=== PATIENT | male | born 1945 | race Caucasian/White ===

== ENCOUNTER 2017-06-10 00:37 | Emergency (ER) | payer OTHER, BC ==
[2017-06-10] MEDS ORDERED: IPRATROPIUM/ALBUTEROL 3 ML DEYVIAL ONE (00:43)
[2017-06-10] MEDS ORDERED: IPRATROPIUM/ALBUTEROL 3 ML DEYVIAL IH ONE (00:45)
[2017-06-10] MEDS ORDERED: NS 500 ML IV ONE (00:48)
[2017-06-10] MEDS ORDERED: methylPREDNISolone SOD SUCC 125 MG/2 ML VIAL IVP ONE (00:48)
[2017-06-10] MEDS ORDERED: MAGNESIUM SULF 2 GM/WATER 50 ML IV ONE (00:48)
[2017-06-10] MEDS ORDERED: ALBUTEROL 3 ML DEYVIAL IH ONE (00:49)
--- NOTE | 2017-06-10 00:51 | EDPHY ---
H & P Stated Complaint: asthma attack Time Seen by Provider: 06/10/17 00:43 HPI/ROS: HPI The patient presents with acute onset of shortness of breath about 30 minutes prior to presentation to the emergency department. As he was sleeping and he awoke and felt short of breath with wheezing. This was persistent, associated with coughing, not improved with his albuterol inhaler that he has at home. He was not able to settle down, so his brought him in. He denies any chest pain. He does report recent URI type symptoms over the last several days. He has not had a fever. He does not have any leg swelling. He says this is his worst attack in the last 30 years.. REVIEW OF SYSTEMS Constitutional: No fever, no chills. Eyes: No discharge. ENT: No sore throat. Cardiovascular: No chest pain, no palpitations. Respiratory: See HPI Gastrointestinal: No abdominal pain, no vomiting. Genitourinary: No hematuria. Musculoskeletal: No back pain. Skin: No rashes. Neurological: No headache. PMHx: History of asthma, uses albuterol occasionally Soc Hx: Former cigarette smoker PHYSICAL General Appearance: Alert, in acute respiratory distress with audible wheeze Eyes: Pupils equal and round no pallor or injection ENT, Mouth: Mucous membranes moist Respiratory: Tachypneic, retractions present, diminished breath sounds throughout with mild expiratory wheezes Cardiovascular: Regular rate and rhythm Gastrointestinal: Abdomen is soft and non-tender, no masses, bowel sounds normal Neurological: A&O, moves all extremities Skin: Warm and dry, no rashes Musculoskeletal: Neck is supple non tender Extremities: symmetrical, full range of motion Psychiatric: Patient is oriented X 3, there is no agitation Source: Patient, Family - Personal History Current Tetanus/Diphtheria Vaccine: Unsure - Medical/Surgical History Hx Asthma: Yes Hx Chronic Respiratory Disease: No Hx Diabetes: No Hx Cardiac Disease: No Hx Renal Disease: No Hx Cirrhosis: No Hx Alcoholism: No Hx HIV/AIDS: No Hx Splenectomy or Spleen Trauma: No Other PMH: asthma, - Social History Smoking Status: Former smoker Constitutional: Initial Vital Signs Temperature (C) 36.0 C 06/10/17 00:40 Heart Rate 115 H 06/10/17 00:40 Respiratory Rate 30 H 06/10/17 00:40 Blood Pressure 202/112 H 06/10/17 00:40 O2 Sat (%) 77 L 06/10/17 00:40 O2 Delivery Mode Room Air O2 (L/minute) 6 Allergies/Adverse Reactions: No Known Allergies Allergy (Unverified 03/08/10 15:23) Home Medications: Medication Instructions Recorded Aspirin [Aspirin 81mg] 81 mg PO DAILY 03/08/10 Cephalexin [Keflex] 500 mg PO QID #20 cap 03/08/10 Albuterol 17 gm IH Q4H PRN #1 aerosol 06/10/17 predniSONE [Prednisone] 60 mg PO DAILY 4 Days #24 tablet 06/10/17 Medical Decision Making - Diagnostics EKG Interpretation: EKG: Complete interpretation has been separately recorded in the [employer] archive. Summary impression: Normal sinus rhythm Imaging Results: Chest x-ray one view shows hyperinflation, no cardiomegaly, no pleural effusion , interpreted by me, radiology interpretation is pending. Imaging: I viewed and interpreted images myself Differential Diagnosis: 71-year-old male, history of asthma, presents with acute onset of shortness of breath which awoke him from sleep tonight. On arrival, he is in obvious respiratory distress, tachypneic, with retractions, diminished breath sounds throughout. He is tachycardic and hypertensive as well. Differential diagnosis includes asthma exacerbation, COPD exacerbation, pneumothorax, pulmonary embolism, acute decompensated heart failure. I met the patient in his room immediately upon his arrival. He is started on a DuoNeb, IV access is established. The patient was given additional albuterol, magnesium, Solu-Medrol. He felt nearly immediately better with these treatments. He had basic laboratory testing which was unremarkable. Chest x-ray was normal. EKG was normal as well. The patient would like to go home and does not want to be admitted to the hospital. I feel this is reasonable given his rapid improvement with our treatments here. I feel he is suffering from an asthma exacerbation, trigger may have been recent URI type of illness. He was able to walk around the emergency department with no tachypnea and room air saturation of 94%. Repeat examination demonstrates no wheezing and normal respiratory rate. He will be discharged home with prednisone and albuterol. He is encouraged to follow up with his primary care doctor in the next 1-2 days. Critical Care Time: CRITICAL CARE Critical care time spent by me, Dr. Bear, exclusively with this patient was 45 minutes, exclusive of PA time and exclusive of procedures. The organ system at risk was pulmonary and I gave continuous nebulizer treatments, magnesium, IV medications to prevent worsening of the patients condition. - Data Points Laboratory Results: Laboratory Results 06/10/17 00:54 06/10/17 00:54 06/10/17 06/10/17 06/10/17 01:07 00:54 00:54 WBC RBC Hgb Hct MCV MCH MCHC RDW Plt Count MPV Neut % (Auto) Lymph % (Auto) Mccone % (Auto) Eos % (Auto) Baso % (Auto) Nucleat RBC Rel Count Absolute Neuts (auto) Absolute Lymphs (auto) Absolute Monos (auto) Absolute Eos (auto) Absolute Basos (auto) Absolute Nucleated RBC Immature Gran % Seg Neutrophils % Band Neutrophils % Lymphocytes % Monocytes % Eosinophils % Basophils % Immature Gran # Absolute Seg Neuts Absolute Band Neuts Absolute Lymphocytes Absolute Monocytes Absolute Eosinophils Absolute Basophils RBC/WBC/PLT Morphology Platelet Estimate D-Dimer < 0.27 ug/mLFEU ug/mLFEU (0.00-0.50) Sodium 144 mEq/L mEq/L (134-144) Potassium 4.1 mEq/L mEq/L (3.5-5.2) Chloride 101 mEq/L mEq/L (97-110) Carbon Dioxide 30 mEq/l mEq/l (22-31) Anion Gap 13 mEq/L mEq/L (8-16) BUN 21 mg/dL mg/dL (7-23) Creatinine 0.9 mg/dL mg/dL (0.7-1.3) Estimated GFR > 60 Glucose 98 mg/dL mg/dL (70-100) Calcium 9.5 mg/dL mg/dL (8.5-10.4) Troponin I < 0.012 ng/mL ng/mL (0.000-0.034) NT-Pro-B Natriuret Pep 73 pg/mL pg/mL (0-125) Nasal Influenza A PCR NEGATIVE FOR FLU A (NEGATIVE) Nasal Influenza B PCR NEGATIVE FOR FLU B (NEGATIVE) 06/10/17 00:54 WBC 13.02 10^3/uL H 10^3/uL (3.80-9.50) RBC 5.60 10^6/uL 10^6/uL (4.40-6.38) Hgb 18.0 g/dL H g/dL (13.7-17.5) Hct 52.7 % H % (40.0-51.0) MCV 94.1 fL fL (81.5-99.8) MCH 32.1 pg pg (27.9-34.1) MCHC 34.2 g/dL g/dL (32.4-36.7) RDW 12.9 % % (11.5-15.2) Plt Count 461 10^3/uL H 10^3/uL (150-400) MPV 8.7 fL fL (8.7-11.7) Neut % (Auto) Not Reported Lymph % (Auto) Not Reported Mccone % (Auto) Not Reported Eos % (Auto) Not Reported Baso % (Auto) Not Reported Nucleat RBC Rel Count 0.0 % % (0.0-0.2) Absolute Neuts (auto) Not Reported Absolute Lymphs (auto) Not Reported Absolute Monos (auto) Not Reported Absolute Eos (auto) Not Reported Absolute Basos (auto) Not Reported Absolute Nucleated RBC 0.00 10^3/uL 10^3/uL (0-0.01) Immature Gran % Not Reported Seg Neutrophils % 55 % % Band Neutrophils % 2 % % Lymphocytes % 29 % % Monocytes % 11 % % Eosinophils % 2 % % Basophils % 1 % % Immature Gran # Not Reported Absolute Seg Neuts 7.16 10^/uL H 10^/uL (1.70-6.50) Absolute Band Neuts 0.26 10^3/uL 10^3/uL (0.00-0.70) Absolute Lymphocytes 3.78 10^3/uL H 10^3/uL (1.00-3.00) Absolute Monocytes 1.43 10^3/uL H 10^3/uL (0.30-0.80) Absolute Eosinophils 0.26 10^3/uL 10^3/uL (0.03-0.40) Absolute Basophils 0.13 10^3/uL H 10^3/uL (0.02-0.10) RBC/WBC/PLT Morphology NORMAL (NORMAL) Platelet Estimate INCREASED H (ADEQ) D-Dimer Sodium Potassium Chloride Carbon Dioxide Anion Gap BUN Creatinine Estimated GFR Glucose Calcium Troponin I NT-Pro-B Natriuret Pep Nasal Influenza A PCR Nasal Influenza B PCR Medications Given: Discontinued Medications Albuterol (Proventil Neb) 5 ml IH CONT ONE Stop: 06/10/17 00:50 Last Admin: 06/10/17 01:02 Dose: 5 ml Albuterol/Ipratropium (Duoneb) 3 ml IH EDNOW ONE Stop: 06/10/17 00:46 Last Admin: 06/10/17 00:47 Dose: 3 ml Sodium Chloride (Ns) 500 mls @ 1,000 mls/hr IV EDNOW ONE PRN Reason: Protocol Stop: 06/10/17 01:17 Last Admin: 06/10/17 01:02 Dose: 500 mls Magnesium Sulfate (Magnesium Sulf 2 Gm (Premix)) 50 mls @ 50 mls/hr IV EDNOW ONE Stop: 06/10/17 01:47 Last Admin: 06/10/17 01:01 Dose: 50 mls Methylprednisolone Sodium Succinate (Solu-Medrol) 125 mg IVP EDNOW ONE Stop: 06/10/17 00:49 Last Admin: 06/10/17 01:01 Dose: 125 mg Departure - Departure Disposition: Home, Routine, Self-Care Clinical Impression: Exacerbation of asthma Qualifiers: Asthma severity: moderate Asthma persistence: unspecified Qualified Code(s): J45.901 - Unspecified asthma with (acute) exacerbation Condition: Good Instructions: Asthma (ED) Additional Instructions: Please return to the emergency department if you are worse in any way. Otherwise, please follow-up with your regular doctor in 1-2 days. Referrals: Ankur Lee MD [Primary Care Provider] - As per Instructions Prescriptions: Albuterol 17 gm IH Q4H PRN #1 aerosol PRN Reason: sob predniSONE [Prednisone] 60 mg PO DAILY 4 Days #24 tablet
[2017-06-10 01:08] LABS: PLATELET COUNT 461 10^3/uL (150-400)
--- NOTE | 2017-06-10 01:18 | CPEKG ---
Heart Rate: 89 RR Interval: 674 P-R Interval: 164 QRSD Interval: 96 QT Interval: 372 QTC Interval: 453 P Ell[place]: 66 QRS [place]: 50 T Wave [place]: 57 EKG Severity - NORMAL ECG - EKG Impression: SINUS RHYTHM Electronically Signed By: Esha Bear 10-Jun-2017 07:01:25
[2017-06-10 01:21] VITALS: O2SAT 99
[2017-06-10 03:02] VITALS: BP 154/96; PULSE 88
[2017-06-10 03:03] VITALS: RESP 18; TEMP 97.9
== END 2017-06-10 03:00 | disposition home or self-care (01) ==
DX: J45.901 Unspecified asthma with (acute) exacerbation (principal); E86.9 Volume depletion, unspecified; Z87.891 Personal history of nicotine dependence; Z79.82 Long term (current) use of aspirin
CPT/HCPCS: 96365

== ENCOUNTER → 2017-06-25 | Outpatient (CLI) | payer BC, OTHER | LOC: FIMAGING 07:33 | PROVIDERS: ATTEND Internal Medicine | DX: J84.9 Interstitial pulmonary disease, unspecified (principal) ==

== ENCOUNTER → 2018-04-21 | Outpatient (CLI) | payer BC | LOC: BMCIMAGING 10:55 | PROVIDERS: ATTEND Family Medicine | DX: M79.671 Pain in right foot (principal); M77.31 Calcaneal spur, right foot ==